=== PATIENT | male | born 1965 | race Two or more races ===

== ENCOUNTER 2016-11-20 17:00 | Emergency (ER) | payer OTHER ==
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
== END 2016-11-20 18:14 | disposition disaster alternative care site (69) ==
LOC: GACC 17:00
DX: M54.6 Pain in thoracic spine (principal); E78.5 Hyperlipidemia, unspecified; Z98.890 Other specified postprocedural states; Z79.899 Other long term (current) drug therapy; V59.40XA Driver of pick-up truck or van injured in collision with unspecified motor vehicles in traffic accident, initial encounter